=== PATIENT | male | born 1965 | race African-American/Black ===

== ENCOUNTER 2017-10-23 11:27 | Emergency (ER) | payer SELFPAY ==
[~2017-10-23] VITALS: Ht 180.3 cm; Wt 82.0 kg
[~2017-10-23 11:27] MED LIST: IBUP-238 PO; OXYC-360 PO; Z.0.NO CURRENT MEDS
[2017-10-23 11:54] VITALS: BP 140/76; PULSE 83; RESP 20; TEMP 99.1; O2SAT 99
--- NOTE | 2017-10-23 12:08 | PD ---
HPI Chief Complaint: Fall Time Seen by Provider: 12:02 Travel History International Travel<30 days: No Contact w/Intl Traveler<30days: No Traveled to known affect area: No History of Present Illness HPI 52 YO M presents to the ED for evaluation of 24 hour history of right foot pain. Onset after stepping off a curb yesterday. Pain is minimal, exacerbated to sharp, 8/10 by weight bearing and ambulation. The patient denies numbness, tingling, weakness of the extremity. Denies previous injury to the area. No treatment attempted at home. PFSH Social History Alcohol Use: No (recently quit times few months ago) Tobacco Use: Yes (0.5 PPD) Substance Use: No Allergies-Medications (Allergen,Severity, Reaction): Coded Allergies: No Known Allergies (Unverified , 01/20/13) Reported Meds & Prescriptions Reported Meds & Active Scripts Active Ibuprofen 600 Mg Tab 600 Mg PO Q8H PRN Motrin (Ibuprofen) 800 Mg Tab 800 Mg PO TID PC Percocet (Oxycodone/Acetaminophen) 5 Mg/325 Mg Tab 1-2 Tab PO Q4-6HR FOR PAIN Reported No Current Meds (Miscellaneous Medication) Misc Review of Systems Except as stated in HPI: all other systems reviewed are Neg Physical Exam Narrative GENERAL: Well-nourished, well-developed -[place] male in no acute distress. SKIN: Focused skin assessment warm/dry. HEAD: Normocephalic. EYES: No scleral icterus. No injection or drainage. NECK: Supple, trachea midline. No JVD or lymphadenopathy. CARDIOVASCULAR: Regular rate and rhythm without murmurs, gallops, or rubs. RESPIRATORY: Breath sounds equal bilaterally. No accessory muscle use. GASTROINTESTINAL: Abdomen soft, non-tender, nondistended. MUSCULOSKELETAL: No cyanosis, or edema. FOCUSED RIGHT LOWER EXTREMITY EXAM: 2+ DP pulse. Tenderness to palpation over the MP joints of the third and fourth metatarsals. Patient able to flex and extend the ankle. No base of the fifth or navicular tenderness noted. Sensation intact to light touch distally. Cap refill less than 2 seconds. BACK: Nontender without obvious deformity. No CVA tenderness. Data Data Last Documented VS Vital Signs Date Time Temp Pulse Resp B/P (MAP) Pulse Ox O2 Delivery O2 Flow Rate FiO2 10/23/17 13:24 20 10/23/17 11:54 99.1 83 140/76 (97) 99 Orders Orders Foot, Complete ([id number]) (10/23/17 12:01) Ice/Cold Pack (10/23/17 12:01) Ibuprofen (Motrin) (10/23/17 12:15) Shoe Post Op (10/23/17 ) Crutches (10/23/17 ) Shoe Cast (10/23/17 ) Ed Discharge Order (10/23/17 13:05) [facility] Medical Decision Making Medical Screen Exam Complete: Yes Emergency Medical Condition: Yes Differential Diagnosis Contusion versus sprain versus fracture versus Lisfranc injury versus other Narrative Course 52 YO M presents to the ED for evaluation of 24 hour history of right foot pain. Onset after stepping off a curb yesterday. Denies previous injury to the area. Vitals reviewed. On exam patient has point tenderness at the head of the fourth and fifth metatarsals. Ice pack was applied. Patient was administered 600 mg ibuprofen. X-rays reveal fracture of the neck of the fourth metatarsal. Postop shoe was applied. Patient was provided a pair crutches, prescribed a short course of anti-inflammatories. Mandatory outpatient consult with podiatry was placed. I explained the follow-up process with the patient, instructed him not to bear weight until cleared by the photograph finisher. He indicated understanding of instructions. He is stable and discharged home. Diagnosis Primary Impression: Fracture of fourth metatarsal bone of right foot Qualified Codes: S92.344A - Nondisplaced fracture of fourth metatarsal bone, right foot, initial encounter for closed fracture Referrals: Orthopedist Patient Instructions: Foot Fracture in Adults (ED), General Instructions Additional Instructions: Rest, ice, elevate the extremity. Apply ice no longer than 10-15 minutes per hour a few times a day. 800 mg ibuprofen up to 3 times a day as needed for pain. Wear the postop shoe until cleared by photograph finisher. Toe-touch weightbearing only until cleared by the photograph finisher. No running, jumping activities for the next few weeks. Follow up with photograph finisher as discussed. Return to the ED for any urgent or emergent medical condition. Med/Other Pt SpecificInfo: Prescription(s) given Scripts Ibuprofen (Ibuprofen) 600 Mg Tab 600 MG PO Q8H Y for PAIN, #15 TAB 0 Refills Prov: Tomasa Elizondo MD 10/23/17 Disposition: 01 DISCHARGE HOME Condition: Stable Nikki Kwon October 23, 2017 12:08
[2017-10-23] MEDS ORDERED: IBUPROFEN 800 MG TAB PO ONE (12:15)
--- NOTE | 2017-10-23 12:28 | RADRPT ---
EXAM DATE/TIME: 10/23/2017 12:13 [place] COMPARISON: No previous studies available for comparison. INDICATIONS : Patient states pain across metatarsals, no known trauma to area. MEDICAL HISTORY : None. SURGICAL HISTORY : None. ENCOUNTER: Initial ACUITY: 2 days PAIN SCORE: 8/10 LOCATION: Right Foot FINDINGS: Three view examination of the right foot demonstrates a slight fracture or neck of the fourth metatar piyush. No other fractures. The calcaneus is intact. Bony mineralization is normal. CONCLUSION: Fracture of the neck of the fourth metatarsal. Jeremy Betts MD on October 23, 2017 at 12:26 Board Certified Radiologist. This report was verified electronically.
[2017-10-23] MEDS ORDERED: IBUP-232 PO (13:05)
[2017-10-23 13:24] VITALS: RESP 20
== END 2017-10-23 13:29 | disposition home or self-care (01) ==
LOC: NEPK 11:27
DX: S92.344A Nondisplaced fracture of fourth metatarsal bone, right foot, initial encounter for closed fracture (principal); F17.200 Nicotine dependence, unspecified, uncomplicated; X58.XXXA Exposure to other specified factors, initial encounter
CPT/HCPCS: 73630; 99283; E0113; L3260